=== PATIENT | female | born 1990 | race African-American/Black ===

== ENCOUNTER 2017-02-17 05:01 | Emergency (ER) | payer OTHER ==
[~2017-02-17] VITALS: Ht 162.6 cm; Wt 68.5 kg
[~2017-02-17 05:01] MED LIST: BIRTH CONTROL; COLACE100 MG PO; COUMADIN 5 MG TA5 M1 PO; ENOXAPARIN60 MG/0.1 SUBQ; IBUPROFEN 800800 M1 PO; MAGNESIUM CITRATE PO; MIRALAX17 GM PO; NORCO 5-325 TA1 EACH PO; ORTHO EVRA PAT1 EACH TRANSDERM; TRAMADOL 50 MG50 MG PO; TYLENOL325 MG PO
== END 2017-02-17 06:18 | disposition home or self-care (01) ==
LOC: ER 05:01
DX: M25.562 Pain in left knee (principal); J45.909 Unspecified asthma, uncomplicated; F10.99 Alcohol use, unspecified with unspecified alcohol-induced disorder; Z98.890 Other specified postprocedural states